=== PATIENT | female | born 1985 | race Caucasian/White ===

== ENCOUNTER 2017-08-08 15:09 | Emergency (ER) | payer MEDICAID ==
[~2017-08-08] VITALS: Ht 152.4 cm; Wt 57.8 kg
[2017-08-08 15:14] VITALS: BP 108/73
[2017-08-08] MEDS ORDERED: SODIUM CHLORIDE 0.9% 1,000ML IVBOLUS ONE (16:30)
[2017-08-08] MEDS ORDERED: MAALOX/HYOSCYAMINE/LIDOCAINE 45 ML BTL PO ONE (16:30)
[2017-08-08] MEDS ORDERED: SODIUM CHLORIDE FLUSH 10ML SYR IVF ONE (16:30)
[2017-08-08] MEDS ORDERED: MAALOX/HYOSCYAMINE/LIDOCAINE 45 ML BTL ONE (16:48)
[2017-08-08 16:55] LABS: BASOPHILS # (AUTO) 0.07 x10^3/uL (0-0.1); BASOPHILS % (AUTO) 1 % (0-1); EOSINOPHILS # (AUTO) 0.32 x10^3/uL (0-0.4); EOSINOPHILS % (AUTO) 4 % (1-7); LYMPHOCYTES # (AUTO) 2.24 x10^3/uL (1-3.4); LYMPHOCYTES % (AUTO) 27 % (22-44); MD NO; MEAN CORPUSCULAR HEMOGLOBIN 23.9 pg (27.0-34.8); MEAN CORPUSCULAR HGB CONC 31.8 g/dL (32.4-35.8); MEAN CORPUSCULAR VOLUME 75.2 fL (80-100); MEAN PLATELET VOLUME 8.5 fL (7.4-10.4); MONOCYTES # (AUTO) 0.75 x10^3/uL (0.2-0.8); MONOCYTES % (AUTO) 9 % (2-9); NEUTROPHILS # (AUTO) 4.82 x10^3/uL (1.8-6.8); NEUTROPHILS % (AUTO) 59 % (42-75); PLATELET COUNT 274 x10^3/uL (130-400); RED BLOOD COUNT 4.47 x10^6/uL (3.82-5.3)
[2017-08-08] MEDS ORDERED: FLUCONAZOLE 100 MG TABLET PO ONE (17:00)
[2017-08-08 17:05] LABS: ALANINE AMINOTRANSFERASE 13 U/L (12-78); ALBUMIN 3.5 g/dL (3.4-5.0); ANION GAP 5 mmol/L (5-15); CALCIUM 8.5 mg/dL (8.5-10.1); CHLORIDE 109 mmol/L (98-107); CREATININE 0.54 mg/dL (0.55-1.02)
[2017-08-08 17:07] LABS: ALKALINE PHOSPHATASE 100 U/L (45-117); BILIRUBIN,TOTAL 0.3 mg/dL (0.2-1.0); TOTAL PROTEIN 7.6 g/dL (6.4-8.2)
[2017-08-08 17:26] LABS: MICROSCOPIC NOT IND
[2017-08-08 17:31] LABS: CULTURE INDICATED? NO
== END 2017-08-08 18:40 | disposition home or self-care (01) ==
LOC: ED 15:51
DX: N89.8 Other specified noninflammatory disorders of vagina (principal); L29.2 Pruritus vulvae; R10.30 Lower abdominal pain, unspecified
CPT/HCPCS: 36415; 80053; 81003; 83690; 85025; 99284

== ENCOUNTER 2017-10-24 18:16 | Emergency (ER) | payer MEDICAID ==
[~2017-10-24] VITALS: Ht 152.4 cm; Wt 56.5 kg
[2017-10-24 18:18] VITALS: BP 122/76
[2017-10-24 19:09] LABS: HCG UR SG 1.029 (1.003-1.030); MICROSCOPIC AUTO
[2017-10-24 19:12] LABS: CULTURE INDICATED? YES
[2017-10-24] MEDS ORDERED: FLUCONAZOLE 100 MG TABLET ONE (19:24)
[2017-10-24] MEDS ORDERED: FLUCONAZOLE 100 MG TABLET PO ONE (19:30)
== END 2017-10-24 19:43 | disposition home or self-care (01) ==
LOC: ED 19:38
DX: B37.3 Candidiasis of vulva and vagina (principal)
CPT/HCPCS: 81001; 81025; 87086; 99284

== ENCOUNTER 2018-06-13 17:50 | Emergency (ER) | payer MEDICAID ==
[~2018-06-13] VITALS: Ht 152.4 cm; Wt 62.0 kg
[2018-06-13 17:58] VITALS: BP 124/91
[2018-06-13] MEDS ORDERED: AMOXICILLIN 500 MG CAPSULE PO ONE (19:00)
[2018-06-13] MEDS ORDERED: IBUPROFEN 200 MG TABLET PO ONE (19:00)
[2018-06-13] MEDS ORDERED: HYDROcodone/APAP 5/325 TABLET PO ONE (19:00)
[2018-06-13] MEDS ORDERED: HYDROcodone/APAP 5/325 TABLET ONE (19:03)
[2018-06-13] MEDS ORDERED: IBUPROFEN 200 MG TABLET ONE (19:03)
== END 2018-06-13 19:25 | disposition home or self-care (01) ==
LOC: ED 19:05
DX: K04.7 Periapical abscess without sinus (principal)
CPT/HCPCS: 99284

== ENCOUNTER 2018-06-14 12:44 | Emergency (ER) | payer MEDICAID ==
[~2018-06-14] VITALS: Ht 152.4 cm; Wt 59.6 kg
[2018-06-14 12:59] VITALS: BP 114/92
[2018-06-14] MEDS ORDERED: HYDROcodone/APAP 5/325 TABLET PO ONE (13:30)
[2018-06-14] MEDS ORDERED: DEXAMETHASONE 4 MG TABLET PO ONE (13:30)
[2018-06-14] MEDS ORDERED: BICILLIN-LA 1,200,000 UNITS/2 ML IM ONE (13:30)
[2018-06-14] MEDS ORDERED: DEXAMETHASONE 4 MG TABLET ONE ×2 (14:23→14:30)
[2018-06-14] MEDS ORDERED: HYDROcodone/APAP 5/325 TABLET ONE (14:23)
== END 2018-06-14 14:37 | disposition home or self-care (01) ==
LOC: ED 14:26
DX: K04.7 Periapical abscess without sinus (principal)
CPT/HCPCS: 41800; 96372; 99283; J0561

== ENCOUNTER 2019-02-17 14:04 | Emergency (ER) | payer MEDICAID, OTHER ==
[~2019-02-17] VITALS: Ht 152.4 cm; Wt 57.6 kg
[2019-02-17 15:02] LABS: MICROSCOPIC INDICATED
[2019-02-17 15:14] LABS: CULTURE INDICATED? NO
--- NOTE | 2019-02-17 15:16 | NUR ---
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
[2019-02-17] MEDS ORDERED: SODIUM CHLORIDE FLUSH 10ML SYR IVF ONE (15:30)
[2019-02-17] MEDS ORDERED: ONDANSETRON 2MG/ML, 2ML IVPush ONE (15:30)
[2019-02-17] MEDS ORDERED: ONDANSETRON 2MG/ML, 2ML ONE (15:39)
[2019-02-17] MEDS ORDERED: MORPHINE SULFATE 4 MG/ML, 1ML ONE ×2 (15:40→18:13)
[2019-02-17] MEDS: MORPHINE SULFATE 4 MG/ML, 1ML IVPush PRN ×2 (15:46→18:16)
[2019-02-17 15:51] VITALS: BP 98/53
[2019-02-17 15:54] LABS: BASOPHILS # (AUTO) 0.04 x10^3/uL (0-0.1); BASOPHILS % (AUTO) 0 % (0-1); EOSINOPHILS # (AUTO) 0.09 x10^3/uL (0-0.4); EOSINOPHILS % (AUTO) 1 % (1-7); LYMPHOCYTES # (AUTO) 1.85 x10^3/uL (1-3.4); LYMPHOCYTES % (AUTO) 20 % (22-44); MD NO; MEAN CORPUSCULAR HEMOGLOBIN 28.1 pg (27.0-34.8); MEAN CORPUSCULAR HGB CONC 32.6 g/dL (32.4-35.8); MEAN CORPUSCULAR VOLUME 86.1 fL (80-100); MEAN PLATELET VOLUME 8.4 fL (7.4-10.4); MONOCYTES # (AUTO) 0.65 x10^3/uL (0.2-0.8); MONOCYTES % (AUTO) 7 % (2-9); NEUTROPHILS % (AUTO) 72 % (42-75); PLATELET COUNT 257 x10^3/uL (130-400); RED BLOOD COUNT 4.38 x10^6/uL (3.82-5.3); RED CELL DISTRIBUTION WIDTH 15.1 % (9.6-15.2)
--- NOTE | 2019-02-17 15:56 | NUR ---
IV PLACED, LABS DRAWN WITH START. MEDS GIVEN PER ERP ORDER FOR 01/26 RLQ PAIN AND NAUSEA. PT STATES UNKNOWN LMP, STATES "I'M PAST DUE BUT CAN'T REMEMBER LAST ONE". WARM BLANKET PROVIDED, CALL LIGHT WITHIN REACH. BP CUFF, PULSE OX IN PLACE.
[2019-02-17 16:00] LABS: ALANINE AMINOTRANSFERASE 9 U/L (12-78); ALBUMIN 3.3 g/dL (3.4-5.0); ANION GAP 6 mmol/L (5-15); CALCIUM 8.7 mg/dL (8.5-10.1); CHLORIDE 108 mmol/L (98-107)
[2019-02-17 16:18] LABS: ALKALINE PHOSPHATASE 91 U/L (45-117); BILIRUBIN,TOTAL 0.3 mg/dL (0.2-1.0); CREATININE 0.53 mg/dL (0.55-1.02)
--- NOTE | 2019-02-17 17:05 | NUR ---
PT TO US.
--- NOTE | 2019-02-17 18:24 | NUR ---
PT MEDICATED FOR RETURNING PAIN PER ERP ORDER. ALL RESULTS BACK, PT FOR RECHECK.
== END 2019-02-17 18:50 | disposition home or self-care (01) ==
LOC: ED 16:54
DX: R10.30 Lower abdominal pain, unspecified (principal); R11.2 Nausea with vomiting, unspecified; F17.200 Nicotine dependence, unspecified, uncomplicated
CPT/HCPCS: 36415; 76830; 80053; 81001; 83690; 84702; 84703; 85025; 96374; 96375; 96376; 99284; J2270; J2405

== ENCOUNTER 2019-09-24 16:06 | Outpatient (CLI) | payer MEDICAID ==
[~2019-09-24] VITALS: Ht 152.4 cm; Wt 68.6 kg
[2019-09-24] MEDS ORDERED: LACTATED RINGERS 1,000 ML IV SCH (17:00)
[2019-09-24] MEDS ORDERED: LACTATED RINGERS 500 ML IVBOLUS ONE (17:00)
[2019-09-24 17:24] VITALS: BP 127/63
[2019-09-24] MEDS ORDERED: PREN-3 PO (18:04)
[2019-09-24 18:28] LABS: MICROSCOPIC NOT IND
[2019-09-24 18:36] LABS: CULTURE INDICATED? NO
[2019-09-24 18:39] LABS: AMPHETAMINE SCREEN, URINE Negative (Negative); BARBITURATE SCREEN, URINE Negative (Negative); BENZODIAZEPINE SCREEN, URINE Negative (Negative); CANNABINOID SCREEN, URINE Negative (Negative); COCAINE SCREEN, URINE Negative (Negative); METHADONE SCREEN, URINE Negative (Negative); OPIATE SCREEN, URINE Negative (Negative)
== END 2019-09-24 18:22 | disposition home or self-care (01) ==
LOC: LDOP 16:06
PROVIDERS: ATTEND Obstetrics & Gynecology
DX: O26.893 Other specified pregnancy related conditions, third trimester (principal); R10.9 Unspecified abdominal pain; E86.0 Dehydration; Z3A.37 37 weeks gestation of pregnancy
CPT/HCPCS: 59025; 76819; 80307; 81003; 96360; 96361; 99201; J7120; G0463

== ENCOUNTER 2019-09-25 17:08 | Outpatient (CLI) | payer MEDICAID ==
[~2019-09-25] VITALS: Ht 152.4 cm; Wt 69.0 kg
[~2019-09-25 17:08] MED LIST: PREN-3 PO
[2019-09-25 17:21] VITALS: BP 101/68
[2019-09-25] MEDS ORDERED: LACTATED RINGERS 1,000 ML IVBOLUS ONE (18:00)
== END 2019-09-25 19:36 | disposition home or self-care (01) ==
LOC: LDOP 17:08
PROVIDERS: ATTEND Obstetrics & Gynecology
DX: O62.9 Abnormality of forces of labor, unspecified (principal); O99.283 Endocrine, nutritional and metabolic diseases complicating pregnancy, third trimester; E86.0 Dehydration; Z3A.37 37 weeks gestation of pregnancy
CPT/HCPCS: 59025; 96360; 99211; J7120; G0463

== ENCOUNTER 2019-10-04 10:07 | Inpatient (IN) | payer MEDICAID ==
[~2019-10-04] VITALS: Ht 152.4 cm; Wt 72.2 kg
[2019-10-04] MEDS ORDERED: METOCLOPRAMIDE 5 MG/ML, 2ML IV ONE (11:00)
[2019-10-04] MEDS ORDERED: LACTATED RINGERS 1,000 ML IVBOLUS ONE (11:00)
[2019-10-04] MEDS ORDERED: SODIUM CITRATE/CITRIC ACID 30 ML UDC PO ONE (11:00)
[2019-10-04] MEDS ORDERED: PLEASE ENTER HEIGHT AND WEIGHT MC SCH (11:00)
[2019-10-04] MEDS ORDERED: TERBUTALINE 1 MG/ML, 1ML ONE (11:13)
[2019-10-04] MEDS: LACTATED RINGERS 1,000 ML IV SCH ×2 (11:29→18:38)
[2019-10-04] MEDS ORDERED: OXYTOCIN 30U/ 0.9% NaCL 500ML 500 ML ONE (11:37)
[2019-10-04] MEDS ORDERED: NEWBORN KIT ONE (11:37)
[2019-10-04] MEDS ORDERED: METOCLOPRAMIDE 5 MG/ML, 2ML ONE (11:37)
[2019-10-04] MEDS ORDERED: SODIUM CITRATE/CITRIC ACID 30 ML UDC ONE (11:38)
[2019-10-04 11:47] LABS: BASOPHILS # (AUTO) 0.05 x10^3/uL (0-0.1); BASOPHILS % (AUTO) 1 % (0-1); EOSINOPHILS # (AUTO) 0.08 x10^3/uL (0-0.4); EOSINOPHILS % (AUTO) 1 % (1-7); LYMPHOCYTES # (AUTO) 1.77 x10^3/uL (1-3.4); LYMPHOCYTES % (AUTO) 23 % (22-44); MD NO; MEAN CORPUSCULAR HEMOGLOBIN 24.5 pg (27.0-34.8); MEAN CORPUSCULAR HGB CONC 32.1 g/dL (32.4-35.8); MEAN CORPUSCULAR VOLUME 76.1 fL (80-100); MEAN PLATELET VOLUME 9.3 fL (7.4-10.4); MONOCYTES # (AUTO) 0.65 x10^3/uL (0.2-0.8); MONOCYTES % (AUTO) 9 % (2-9); NEUTROPHILS # (AUTO) 5.15 x10^3/uL (1.8-6.8); NEUTROPHILS % (AUTO) 67 % (42-75); PLATELET COUNT 272 x10^3/uL (130-400); RED BLOOD COUNT 4.05 x10^6/uL (3.82-5.3); RED CELL DISTRIBUTION WIDTH 14.6 % (9.6-15.2)
[2019-10-04 12:29] VITALS: BP 126/81
[2019-10-04] MEDS ORDERED: morphine SULFATE/PF 0.5 MG/ML, 10ML ONE (16:04)
[2019-10-04] MEDS ORDERED: FENTANYL PF 100 MCG/2ML ONE (16:04)
[2019-10-04] MEDS ORDERED: SODIUM CHLORIDE 0.9% PF 10ML ONE (16:06)
[2019-10-04] MEDS ORDERED: WATER-INJECTION,STERILE 10 ML IV ONE (16:06)
[2019-10-04] MEDS ORDERED: ONDANSETRON 2MG/ML, 2ML ONE ×2 (16:06→18:34)
[2019-10-04] MEDS ORDERED: KETOROLAC 30 MG/1 ML ONE (16:06)
[2019-10-04] MEDS ORDERED: CEFAZOLIN 1,000 MG ONE (16:06)
[2019-10-04] MEDS ORDERED: DEXAMETHASONE 4 MG/ML, 1ML ONE (16:06)
[2019-10-04] MEDS ORDERED: PHENYLEPHRINE 10 MG/ML ONE (16:06)
[2019-10-04] MEDS ORDERED: OXYTOCIN 10 UNITS/ML, 1ML ONE ×2 (16:06→16:33)
[2019-10-04] MEDS ORDERED: LACTATED RINGERS 1,000 ML IV SCH ×2 (16:58)
[2019-10-04] MEDS ORDERED: METOCLOPRAMIDE 5 MG/ML, 2ML IV PRN (17:00)
[2019-10-04] MEDS ORDERED: ONDANSETRON 2MG/ML, 2ML IV PRN (17:00)
[2019-10-04] MEDS: KETOROLAC 30 MG/1 ML IV SCH ×2 (17:00→23:05)
[2019-10-04] MEDS ORDERED: CALCIUM CARBONATE 500 MG TAB.CHEW PO PRN (17:00)
[2019-10-04] MEDS ORDERED: IBUPROFEN 600 MG TABLET PO PRN (17:00)
[2019-10-04] MEDS ORDERED: OXYcodone/APAP 5/325MG TABLET PO PRN ×3 (17:00→21:00)
[2019-10-04] MEDS: OXYTOCIN 30U/ 0.9% NaCL 500ML 500 ML IV SCH (18:58)
[2019-10-04 19:20] VITALS: BP 124/77
[2019-10-04] MEDS ORDERED: DIPHENHYDRAMINE 50 MG/ML, 1ML IV PRN (21:00)
[2019-10-04] MEDS ORDERED: EPHEDRINE 50 MG/ML, 1ML IVPush PRN (21:00)
[2019-10-04] MEDS ORDERED: NALOXONE 0.4 MG/ML, 1ML IV PRN (21:00)
[2019-10-04] MEDS ORDERED: ONDANSETRON 2MG/ML, 2ML IVPush PRN (21:00)
[2019-10-04] MEDS ORDERED: morphine SULFATE 10 MG/ML, 1ML IVPush PRN (21:00)
[2019-10-04] MEDS ORDERED: DO NOT GIVE XX SCH (21:00)
[2019-10-04] MEDS ORDERED: KETOROLAC 30 MG/1 ML IV PRN (23:00)
[2019-10-05 00:10] VITALS: BP 106/62
[2019-10-05 00:46] LABS: BASOPHILS # (AUTO) 0.11 x10^3/uL (0-0.1); BASOPHILS % (AUTO) 1 % (0-1); EOSINOPHILS % (AUTO) 0 % (1-7); LYMPHOCYTES # (AUTO) 1.18 x10^3/uL (1-3.4); LYMPHOCYTES % (AUTO) 9 % (22-44); MD NO; MEAN CORPUSCULAR HEMOGLOBIN 24.3 pg (27.0-34.8); MEAN CORPUSCULAR HGB CONC 31.9 g/dL (32.4-35.8); MEAN CORPUSCULAR VOLUME 76.1 fL (80-100); MEAN PLATELET VOLUME 8.5 fL (7.4-10.4); MONOCYTES # (AUTO) 0.28 x10^3/uL (0.2-0.8); MONOCYTES % (AUTO) 2 % (2-9); NEUTROPHILS # (AUTO) 12.02 x10^3/uL (1.8-6.8); NEUTROPHILS % (AUTO) 89 % (42-75); PLATELET COUNT 233 x10^3/uL (130-400); RED BLOOD COUNT 4.18 x10^6/uL (3.82-5.3); RED CELL DISTRIBUTION WIDTH 14.7 % (9.6-15.2)
[2019-10-05] MEDS: LACTATED RINGERS 1,000 ML IV SCH ×3 (02:38→18:38)
[2019-10-05] MEDS: OXYTOCIN 30U/ 0.9% NaCL 500ML 500 ML IV SCH ×3 (02:58→22:58)
[2019-10-05] MEDS: OXYcodone/APAP 5/325MG TABLET PO PRN ×4 (04:28→19:58)
[2019-10-05 05:00] VITALS: BP 104/55
[2019-10-05] MEDS: KETOROLAC 30 MG/1 ML IV SCH (05:00)
[2019-10-05 07:57] VITALS: BP 92/52
[2019-10-05] MEDS: PRENATAL VIT/IRON/FA 1 EACH TABLET PO SCH (09:42)
[2019-10-05] MEDS: DOCUSATE 100 MG CAPSULE PO PRN ×2 (09:43→19:57)
[2019-10-05] MEDS: IBUPROFEN 600 MG TABLET PO PRN ×2 (09:43→16:07)
[2019-10-05 12:20] VITALS: BP 110/75
[2019-10-05 16:01] VITALS: BP 112/76
[2019-10-05] MEDS: SIMETHICONE 80 MG CHEW TAB PO PRN (18:51)
[2019-10-05 20:00] VITALS: BP 96/58
[2019-10-06] MEDS: IBUPROFEN 600 MG TABLET PO PRN ×3 (00:11→16:09)
[2019-10-06] MEDS: OXYcodone/APAP 5/325MG TABLET PO PRN ×5 (00:11→20:49)
[2019-10-06] MEDS: LACTATED RINGERS 1,000 ML IV SCH ×3 (02:38→18:38)
[2019-10-06] MEDS: PRENATAL VIT/IRON/FA 1 EACH TABLET PO SCH (08:12)
[2019-10-06] MEDS: SIMETHICONE 80 MG CHEW TAB PO PRN ×2 (08:13→16:08)
[2019-10-06] MEDS: DOCUSATE 100 MG CAPSULE PO PRN ×2 (08:13→20:48)
[2019-10-06 08:31] VITALS: BP 114/80
[2019-10-06] MEDS: OXYTOCIN 30U/ 0.9% NaCL 500ML 500 ML IV SCH ×2 (08:58→18:58)
[2019-10-06] MEDS ORDERED: IBUPROFEN 600 MG TABLET PO PRN (19:00)
[2019-10-06 20:30] VITALS: BP 107/70
[2019-10-07] MEDS: OXYcodone/APAP 5/325MG TABLET PO PRN ×3 (01:41→11:40)
[2019-10-07] MEDS: IBUPROFEN 600 MG TABLET PO PRN ×2 (01:41→07:19)
[2019-10-07] MEDS: LACTATED RINGERS 1,000 ML IV SCH ×2 (02:38→10:38)
[2019-10-07] MEDS: OXYTOCIN 30U/ 0.9% NaCL 500ML 500 ML IV SCH (04:58)
[2019-10-07] MEDS: PRENATAL VIT/IRON/FA 1 EACH TABLET PO SCH (07:18)
[2019-10-07] MEDS: SIMETHICONE 80 MG CHEW TAB PO PRN (07:18)
[2019-10-07] MEDS: DOCUSATE 100 MG CAPSULE PO PRN (07:19)
[2019-10-07 08:00] VITALS: BP 117/73
[2019-10-07] MEDS ORDERED: IBUP-1222 PO (09:45)
[2019-10-07] MEDS ORDERED: DOCU-131 PO (09:45)
[2019-10-07] MEDS ORDERED: OXYC-302 PO (09:45)
== END 2019-10-07 12:00 | disposition home or self-care (01) | DRG 785 ==
LOC: LDIP 10:07 → 2NW 19:10
PROVIDERS: ADMIT Obstetrics & Gynecology; ATTEND Obstetrics & Gynecology
PROC: 10D00Z1 Extraction of Products of Conception, Low, Open Approach (ICD-10-PCS; principal; 2019-10-04)
PROC: 0UT70ZZ Resection of Bilateral Fallopian Tubes, Open Approach (ICD-10-PCS; 2019-10-04)
DX: O34.211 Maternal care for low transverse scar from previous cesarean delivery (principal); O99.334 Smoking (tobacco) complicating childbirth; Z3A.39 39 weeks gestation of pregnancy; Z37.0 Single live birth; Z30.2 Encounter for sterilization; O99.810 Abnormal glucose complicating pregnancy; F17.200 Nicotine dependence, unspecified, uncomplicated
CPT/HCPCS: 36415; 85025; 86592; 86850; 86900; 87806; 88302; G0378; J0690; J1100; J1885; J2274; J2405; J3010; G0475; J2370; J2590; J2765; J7120